=== PATIENT | female | born 2000 | race Caucasian/White ===

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

== ENCOUNTER 2022-05-14 15:37 | Emergency (ER) | payer OTHER ==
[2022-05-14 16:28] VITALS: BP 130/74; PULSE 91; TEMP 97.9; BMI 27.4
[2022-05-14] MEDS ORDERED: DEXAMETHASONE SOD PHOSPHATE 10 MG/1 ML VIAL PO ONE (17:28)
[2022-05-14] MEDS ORDERED: predniSONE 10 MG TABLET (UD) ONE (17:58)
== END 2022-05-14 18:24 | disposition home or self-care (01) ==
LOC: JER 15:37
DX: J06.9 Acute upper respiratory infection, unspecified (principal)
CPT/HCPCS: 99283-25; J1100